=== PATIENT | female | born 1955 | race Caucasian/White ===

== ENCOUNTER 2020-12-10 13:59 | Outpatient (CLI) | payer MEDICARE, SELFPAY ==
--- NOTE | ~2020-12-10 | CT_ITS ---
EXAMINATION: CT lung screening DATE: 12/10/2020 16:18 INDICATION: Personal history of tobacco dependence, prior smoker with 45 pack year history TECHNIQUE: Computed tomography (CT) of the chest was performed without intravenous contrast. The dose -length product (DLP) was 90.35 mGy-cm. Automated exposure control and iterative reconstruction techn [employer] were employed. COMPARISON: None FINDINGS: There is mild emphysema. No pulmonary nodules are identified. The lungs are free of acute o pacities. There is no pleural effusion or pneumothorax. No pathologically enlarged thoracic lymph nod es are identified. The heart size is normal. There is mild thoracic spondylosis. IMPRESSION: 1. Lung-RADS category 1: Negative. Continue annual screening with noncontrast low-dose chest CT in 12 months. Reviewed, dictated and finalized at location A. RENTAL CLERK IMPRESSION: 1. Lung-RADS category 1: Negative. Continue annual screening with noncontrast l ow-dose chest CT in 12 months.
--- NOTE | ~2020-12-10 | DEXA_ITS ---
Bone Density Report Name: Nadia Akers Age: 65 Sex: Female Ethnicity: White Date of : 1955 Indication: postmenopausal; hysterectomy; Referring Provider: LAURI, DEVENDRA Ambrose Study: Bone densitometry was performed. Exam Date: December 10, 2020 Accession number: [id number] Bone Density: Region BMD T-score Z-score Classification AP Spine (L1-L4) 0.847 -1.8 0.0 Osteopenia Femoral Neck (Left) 0.716 -1.2 0.4 Osteopenia Total Hip (Left) 0.844 -0.8 0.5 Normal Total Hip Bilateral Avg 0.852 -0.8 0.6 Normal Femoral Neck (Right) 0.666 -1.7 -0.1 Osteopenia Total Hip (Right) 0.859 -0.7 0.6 Normal World Health Organization criteria for BMD impression classify patients as: Normal (T-score at or above -1.0), Osteopenia (T-score between -1.0 and -2.5), or Osteoporosis (T-score at or below -2.5). 10-year Fracture Risk(1): Major Osteoporotic Fracture 9.3% Hip Fracture 1.1% Reported Risk Factors: [place] (), Neck BMD=0.666, BMI=27.5 (1) FRAX(R) Version 3.08. Fracture probability calculated for an untreated patient. Fracture probability may be lower if the patient has received treatment. Clinical Information Provided by Patient: Has used the following medications: Vitamin D Has the following medical conditions: Hysterectomy Patient maximum height was 65 Menopause Age: 40 No regular weight bearing exercise Onset of menses at age 10 Number of children 3 Impression: The patient has low bone mass, based on the Total Spine T-score. The patient has an estimated ten-year risk of hip fracture of 1.1% and an estimated ten-year risk of major fracture of 9.3%, based on the WHO FRAX algorithm. Discussion: BONE DENSITY IS LOW AT ONE OR MORE SKELETAL SITES. This patient's lowest T-score is low at one or more skeletal sites. It meets the World Health Organization's (WHO) criteria for ?low bone mass? (T-score between -1.0 and -2.5). The patient's 10-year risk of fracture as calculated by FRAX is less than the threshold where pharmacological therapy is recommended by the National Osteoporosis Foundation (NOF). However, all treatment decisions require clinical judgment and consideration of individual patient factors, including patient preferences, comorbidities, previous drug use, risk factors not captured in the FRAX model (e.g., frailty, falls, vitamin D deficiency, increased bone turnover, interval significant decline in bone density) and possible under or overestimation of fracture risk by FRAX. The patient should follow a healthful lifestyle (good nutrition with adequate calcium and vitamin D, and appropriate weight-bearing exercise). Follow-Up: Consider repeating this study in 2 to 3 years to reassess this patient's status, or sooner if there is some new clinical indication. Reported by: WILI on 12/10/2020 2:3
--- NOTE | ~2020-12-10 | MM_ITS ---
EXAMINATION: MM screening [facility] BI w camilo HISTORY: Screening mammogram TECHNIQUE: Craniocaudal and mediolateral oblique 3-D tomosynthesis images were obtained and synthetic 2-D images were generated. CAD analysis was submitted and interpreted. COMPARISON: No prior mammogram is available for comparison at this institution. BREAST PARENCHYMAL COMPOSITION: There are scattered areas of fibroglandular density. FINDINGS: Bilateral breast masses are suggested including a 4 mm mass at the right axillary tail,, conway ggestive subareolar right breast mass, 6 mm mass in the lateral left breast (craniocaudal tomosynthes is image ). Bilateral diagnostic mammography and bilateral breast ultrasound examination are recommended. IMPRESSION: 1. Bilateral breast masses 2. Bilateral diagnostic mammography and bilateral breast ultrasound examination are recommended BI-RADS Category 0: Incomplete: Needs additional imaging evaluation. Reviewed, dictated and finalized at location A. RMATION SYSTEMS PROFESSOR
== END 2020-12-10 14:00 | disposition home or self-care (01) ==
LOC: ANHIMG 14:04
PROVIDERS: PCP Family Medicine; Visit Provider Family Medicine
DX: Z12.31 Encounter for screening mammogram for malignant neoplasm of breast (principal); Z12.2 Encounter for screening for malignant neoplasm of respiratory organs; Z87.891 Personal history of nicotine dependence; R92.8 Other abnormal and inconclusive findings on diagnostic imaging of breast; Z78.0 Asymptomatic menopausal state; M85.852 Other specified disorders of bone density and structure, left thigh; M85.851 Other specified disorders of bone density and structure, right thigh
CPT/HCPCS: 71271; 77063; 77067; 77080

== ENCOUNTER 2020-12-10 14:56 | Outpatient (CLI) | payer MEDICARE, SELFPAY ==
--- NOTE | 2020-12-10 | ECHO_ITS ---
Patient Info Name: Nadia Akers Age: 65 years : 1955 Gender: Female Ht: 64 in Wt: 165 lbs BSA: 1.86 m2 HR: 80 bpm BP: 139 / 71 mmHg Heart Rhythm: Sinus Rhythm Technical Quality: Good Exam Date: 12/10/2020 3:30 PM Exam Location: [facility] Pulmonary Patient Status: Outpatient Admit Date: 12/10/2020 Staff Ordering Physician: Leanna, Edilia Ambrose MD End Lathe Operator: Morenita Spivey RDCS Attending Provider: Kay, Edilia mAbrose MD Referring Physician: Leanna BUSTAMANTE; Exam Type: CA echo doppler color flow Study Info Indications - ARAUJO Complete two-dimensional, color flow and Doppler transthoracic echocardiogram is performed. Summary 1. Complete two-dimensional, color flow and Doppler transthoracic echocardiogram is performed. 2. Left ventricular chamber size, wall thickness, systolic and diastolic function are normal with no regional wall motion abnormalities with an estimated ejection fraction of >70%. 3. Left atrial chamber dimension is mildly enlarged. 4. No significant valve disease. 5. Borderline pulmonary hypertension, estimated pulmonary arterial systolic pressure is 37 mmHg. 6. normal sinus rhythm. Left Ventricle Left ventricular chamber dimension is normal. Left ventricular systolic function is normal, estimated at >70%. There is no increased left ventricular wall thickness. Left ventricular septal wall motion is normal. The left ventricular diastolic function is normal. Left ventricular chamber size, wall thickness, systolic and diastolic function are normal with no regional wall motion abnormalities with an estimated ejection fraction of >70%. Right Ventricle Right ventricular chamber dimension is normal. Right ventricular systolic function is normal. Left Atria Left atrial chamber dimension is mildly enlarged. Right Atria Right atrial chamber dimension is normal. Aortic Valve The aortic valve is trileaflet. There is no aortic valve sclerosis. There is no aortic valve stenosis. There is no aortic valve regurgitation. Pulmonic Valve The pulmonic valve is normal. There is no pulmonic valve stenosis. There is no pulmonic regurgitation. Mitral Valve The mitral valve has normal leaflets. There is no mitral valve stenosis. There is no mitral valve regurgitation. Tricuspid Valve The tricuspid valve leaflets are normal. There is no significant tricuspid valve stenosis. There is trace tricuspid valve regurgitation. Borderline pulmonary hypertension, estimated pulmonary arterial systolic pressure is 37 mmHg. Pericardium/Pleural The pericardium appears normal. There is no pericardial effusion. Inferior Vena Cava Normal inferior vena cava with >50% collapse upon inspiration consistent with Empty right atrial pressure, 10 mmHg. Aorta The aortic root size at the sinus of Valsalva is normal. The prox ascending aorta size is normal. Left Ventricular Outflow Tract Name Value Normal LVOT 2D LVOT Diameter 2.0 cm LVOT Doppler LVOT Peak Gradient 6 mmHg LVOT Mean Gradient 3 mmHg LVOT VTI
== END 2020-12-10 14:57 | disposition home or self-care (01) ==
PROVIDERS: PCP Family Medicine; Visit Provider Family Medicine
DX: R06.02 Shortness of breath (principal); I51.7 Cardiomegaly
CPT/HCPCS: 71271; 77063; 77067; 77080; 93306

== ENCOUNTER 2021-01-14 12:59 | Outpatient (CLI) | payer MEDICARE, SELFPAY ==
--- NOTE | ~2021-01-14 | MMUS_ITS ---
EXAMINATION: MM diagnostic mammo BI, US breast BI limited HISTORY: Follow-up bilateral breast asymmetries TECHNIQUE: Additional 3-D tomosynthesis images of the breasts were performed and synthetic 2-D images were generated. CAD analysis was submitted and interpreted. High resolution limited bilateral breast ultrasound was performed. COMPARISON: 12/10/2020 BREAST PARENCHYMAL COMPOSITION: Breast composed of scattered areas of fibroglandular density. FINDINGS: MAMMOGRAPHIC FINDINGS: There is a persistent circumscribed 5 mm mass upper outer quadrant overlying the pectoralis muscle. T he focal asymmetry in the lateral aspect of the left breast is less dense with spot compression views . ULTRASOUND: Bilateral limited breast ultrasound: No discrete mass identified. Normal heterogeneous echotexture. IMPRESSION: 1. Probable benign bilateral breast masses involving the axillary aspect of the right breast in the m id lateral aspect of the left breast, most likely lymph nodes. 2. Recommend 6 month follow-up diagnostic bilateral mammogram. BI-RADS category 3, probably benign findings. Reviewed, dictated and finalized at location A. IMPRESSION: 1. Probable benign bilateral breast masses involving the axillary aspect of the right breast in the mid lateral aspect of the left breast, most likely lymph n odes. 2. Recommend 6 month follow-up diagnostic bilateral mammogram. BI-RADS category 3, probably benign findings.
== END 2021-01-14 13:00 | disposition home or self-care (01) ==
PROVIDERS: PCP Family Medicine; Visit Provider Family Medicine
DX: R92.8 Other abnormal and inconclusive findings on diagnostic imaging of breast (principal)
CPT/HCPCS: 76642; 77066

== ENCOUNTER 2023-04-11 07:26 | Outpatient (CLI) | payer MEDICARE, SELFPAY ==
--- NOTE | ~2023-04-11 | MM_ITS ---
EXAMINATION: MM screening [facility] BI w camilo HISTORY: Screening mammogram TECHNIQUE: Craniocaudal and mediolateral oblique 3-D tomosynthesis images were obtained and synthetic 2-D images were generated. CAD analysis was submitted and interpreted. COMPARISON: 01/14/2021 bilateral diagnostic mammography and bilateral Limited breast ultrasound examin ation BREAST PARENCHYMAL COMPOSITION: There are scattered areas of fibroglandular density. FINDINGS: There is mildly diminished size of a circumscribed mass in the outer mid to upper left jeniffer st, currently measuring approximately 5 mm compared to 6.6 mm on December 10, 2020. No suspicious mass , architectural distortion, microcalcifications, skin thickening or retraction or significant new or developing density of either breast is detected. IMPRESSION: 1. Benign finding 2. Recommend routine screening mammography in one year. BI-RADS Category 2: Benign finding(s). Reviewed, dictated and finalized at location A.
== END 2023-04-11 07:27 | disposition home or self-care (01) ==
PROVIDERS: PCP Nurse Practitioner Family; Visit Provider Nurse Practitioner Family
DX: Z12.31 Encounter for screening mammogram for malignant neoplasm of breast (principal)
CPT/HCPCS: 77063; 77067

== ENCOUNTER → 2023-05-04 08:05 | Outpatient (CLI) | payer MEDICARE, SELFPAY ==
--- NOTE | ~2023-05-04 | XR_ITS ---
EXAMINATION: XR chest 2V DATE: 05/04/2023 08:19 INDICATION: Shortness of breath. TECHNIQUE: Frontal and lateral views of the chest were obtained. COMPARISON: Chest CT 12/10/2020 FINDINGS: The chest demonstrates clear lungs without pneumonia, pleural effusion, or pneumothorax. Th e heart size is normal. IMPRESSION: 1. No acute cardiopulmonary disease. Reviewed, dictated and finalized at location A.
== END ==
PROVIDERS: PCP Nurse Practitioner Family; Visit Provider Nurse Practitioner Family
DX: R06.02 Shortness of breath (principal)
CPT/HCPCS: 71046

== ENCOUNTER 2023-07-19 06:36 | Outpatient (CLI) | payer MEDICARE, SELFPAY ==
--- NOTE | ~2023-07-19 | CT_ITS ---
EXAMINATION: CT abdomen wo con DATE: 07/19/2023 08:42 INDICATION: Thrombocytosis TECHNIQUE: Computed tomography (CT) of the abdomen was performed without intravenous contrast. The do se-length product (DLP) was 319.50 mGy-cm. Automated exposure control and iterative reconstruction te chnique were employed. COMPARISON: None FINDINGS: The lung bases are clear. The heart size is normal. The liver, spleen, pancreas, gallbladde r, and adrenal glands are normal. The left kidney is unremarkable. There is a 7 mm cyst of the right kidney. There are no pathologically enlarged abdominal lymph nodes. The appendix is normal. No free i ntraperitoneal gas or evidence of bowel obstruction. There is severe lower lumbar spondylosis. IMPRESSION: 1. No CT correlate for the patient's symptoms. Reviewed, dictated and finalized at location B.
[2023-07-19 07:08] LABS: Estimated Glomerular Filt Rate 26
== END 2023-07-19 06:37 | disposition home or self-care (01) ==
PROVIDERS: PCP Nurse Practitioner Family
DX: D75.839 Thrombocytosis, unspecified (principal); D47.3 Essential (hemorrhagic) thrombocythemia
CPT/HCPCS: 74150

== ENCOUNTER → 2023-08-30 11:01 | Outpatient (CLI) | payer MEDICARE, SELFPAY ==
--- NOTE | ~2023-08-30 | XR_ITS ---
EXAMINATION: XR shoulder RT min 2V DATE: 08/30/2023 11:25 INDICATION: Right shoulder pain. TECHNIQUE: 4 views of right shoulder were obtained. COMPARISON: None. FINDINGS: Bone alignment is normal. No fracture. Glenohumeral joint is normal. There is moderate acro mioclavicular joint osteoarthritis. IMPRESSION: 1. Moderate right acromioclavicular joint osteoarthritis. Reviewed, dictated and finalized at location E.
--- NOTE | ~2023-08-30 | XR_ITS ---
XR knee LT min 4V 08/30/2023 11:26 Indication: Left knee pain Procedure: 4 views left knee Comparison: No prior studies for comparison. Findings: There is moderate tricompartment osteoarthritis. No fracture or traumatic malalignment. No significant joint effusion. Impression: 1: Moderate tricompartment osteoarthritis. Reviewed, dictated and finalized at location B. Impression: 1: Moderate tricompartment osteoarthritis.
== END ==
PROVIDERS: PCP Nurse Practitioner Family; Visit Provider Nurse Practitioner Family
DX: M19.011 Primary osteoarthritis, right shoulder (principal); M17.12 Unilateral primary osteoarthritis, left knee
CPT/HCPCS: 73030; 73564

== ENCOUNTER 2024-04-30 15:14 | Outpatient (CLI) | payer MEDICARE, SELFPAY ==
--- NOTE | ~2024-04-30 | CT_ITS ---
EXAMINATION: CT diagnostic chest wo con DATE: 04/30/2024 15:43 INDICATION: LOCALIZED ENLARGED LYMPH NODES TECHNIQUE: Computed tomography (CT) of the chest was performed without intravenous contrast. Addition al 3D reconstructions utilizing coronal maximum intensity projection (MIP) were performed. Automated exposure control and iterative reconstruction technique were employed. The dose-length product was 21 4.30 mGy-cm. COMPARISON: None FINDINGS: No pneumonia, pulmonary edema or pleural effusion. No suspicious pulmonary nodules. Heart size is nor mal. No pericardial effusion. Thoracic aorta is normal in caliber. No pathologically enlarged thoraci c lymphadenopathy. Visualized upper abdomen is unremarkable. Severe lower cervical and moderate thora cic spondylosis. IMPRESSION: 1. No acute cardiopulmonary disease or pathologically enlarged thoracic lymphadenopathy. Reviewed, dictated and finalized at location B. IMPRESSION: 1. No acute cardiopulmonary disease or pathologically enlarged thoracic lymphad enopathy.
== END 2024-04-30 15:15 | disposition home or self-care (01) ==
PROVIDERS: PCP Nurse Practitioner Family; Visit Provider Nurse Practitioner Family
DX: R59.0 Localized enlarged lymph nodes (principal)
CPT/HCPCS: 71250

== ENCOUNTER 2024-05-28 13:33 | Outpatient (CLI) | payer MEDICARE, SELFPAY ==
--- NOTE | ~2024-05-28 | MM_ITS ---
EXAMINATION: MM diagnostic [facility] BI w camilo HISTORY: Left axillary palpable abnormality TECHNIQUE: Additional 3-D tomosynthesis images of the breasts were performed and synthetic 2-D images were generated. CAD analysis was submitted and interpreted. COMPARISON: Comparison to multiple prior studies sequentially, with oldest reviewed study dated 12/10. BREAST PARENCHYMAL COMPOSITION: Not dense: There are scattered areas of fibroglandular density. FINDINGS: The breasts are stable. No suspicious masses, calcifications or architectural distortion to suggest malignancy. IMPRESSION: 1. No mammographic evidence for malignancy. 2. Targeted left ultrasound recommended for palpable abnormality. BI-RADS CATEGORY 0 - INCOMPLETE STUDY, NEED ADDITIONAL IMAGING EVALUATION. Reviewed, dictated and finalized at location B.
--- NOTE | ~2024-05-28 | DEXA_ITS ---
Bone Density Report Name: JOHN DIAZ I Age: 69 Sex: Female Ethnicity: White Date of : 1955 Indication: postmenopausal; screening for osteoporosis; height loss; prior fracture; hysterectomy; Referring Provider: ERAN, BACILIO Study: Bone densitometry was performed. Exam Date: May 28, 2024 Accession number: [id number] Bone Density: Region BMD T-score Z-score Classification AP Spine(L1-L4) 0.940 -1.0 1.1 Normal Femoral Neck (Left) 0.713 -1.2 0.5 Osteopenia Total Hip (Left) 0.806 -1.1 0.3 Osteopenia Femoral Neck (Right) 0.639 -1.9 -0.1 Osteopenia Total Hip (Right) 0.825 -1.0 0.5 Normal Total Hip Mean 0.815 -1.1 0.4 Osteopenia World Health Organization criteria for BMD impression classify patients as: Normal (T-score at or above -1.0), Osteopenia (T-score between -1.0 and -2.5), or Osteoporosis (T-score at or below -2.5). 10-year Fracture Risk: FRAX not reported because: Prior hip or vertebral fracture Clinical Information Provided by Patient: Have had a previous hip or vertebral fracture Has had a low trauma fracture Has 3 or more alcoholic drinks per day Has used the following medications: Vitamin D Has the following medical conditions: Hysterectomy Patient maximum height was 66 Menopause Age: 40 Drinks caffeinated beverages Onset of menses at age 9 Number of children 3 Impression: The patient has low bone mass, based on the Right Femoral Neck T-score. The patient has risk factors, including: excessive alcohol use, previous fracture. Discussion: INCREASED RISK OF FRACTURE DUE TO HISTORY OF FRACTURE. The patient's previous fracture puts the patient at high risk of a future fracture. In untreated patients, the risk of osteoporotic fracture increases approximately two-fold for each 1.0 SD decrease in T-score. Low bone density is not the only risk factor for fracture; also consider factors such as patient's age, frailty or poor health, risk of falling, risk of injury, previous osteoporotic fracture, family history of osteoporosis, cigarette smoking, low body weight, etc. Not everyone with a low trauma fracture has osteoporosis; osteomalacia and other metabolic bone disorders should also be considered. Patients who have osteoporosis should be evaluated for specific diseases and conditions (secondary causes) that may cause or contribute to bone loss and fracture risk. National Osteoporosis Foundation (NOF) recommends pharmacologic intervention for patients with a prior hip or vertebral fracture regardless of BMD T-score. The patient should follow a healthful lifestyle (good nutrition with adequate calcium and vitamin D, and appropriate weight-bearing exercise). Follow-Up: Consider a repeat BMD and Vertebral Fracture Assessment (VFA) exam in 2 years or sooner if medically necessary, to r
--- NOTE | ~2024-05-28 | US_ITS ---
US axilla LT 05/28/2024 19:51 Indication: Left axillary lump Procedure: High-resolution Limited ultrasound of the left axilla Comparison: Mammogram dated 05/28/2024 Findings: There is a normal-appearing 7 mm left axillary lymph node with fatty hilum. No suspicious m asses in the axilla to suggest malignancy. Impression: 1: Unremarkable left axillary ultrasound. BI-RADS CATEGORY 2 - BENIGN FINDINGS Reviewed, dictated and finalized at location B. Impression: 1: Unremarkable left axillary ultrasound. BI-RADS CATEGORY 2 - BENIGN FINDINGS
== END 2024-05-28 13:34 | disposition home or self-care (01) ==
PROVIDERS: PCP Nurse Practitioner Family; Visit Provider Nurse Practitioner Family
DX: Z78.0 Asymptomatic menopausal state (principal); R59.1 Generalized enlarged lymph nodes; M85.852 Other specified disorders of bone density and structure, left thigh; M85.851 Other specified disorders of bone density and structure, right thigh
CPT/HCPCS: 76882; 77062; 77066; 77080; G0279

== ENCOUNTER → 2025-04-30 10:17 | Outpatient (CLI) | payer MEDICARE, SELFPAY ==
--- NOTE | ~2025-04-30 | XR_ITS ---
XR cervical spine 4-5V Ordering provider: Yancy Erickson, MACHINE STRAW HAT PRESSER History: . M54.2 Pain . Comparison: April 25, 2011 FINDINGS: VERTEBRAL BODIES: Reversal of lordosis with kyphosis centered at the level of C3-C4. Normal height an d alignment. No visible fracture or subluxation. The dens is intact. Degenerative changes of the spin e. DISK SPACES: Narrowing of the disc C3-C4, C4-C5, C5-C6 and C6-C7. Multilevel facet joint disease. Mul tilevel uncovertebral joint osteoarthritic changes. PARASPINOUS SOFT TISSUES: No prevertebral soft tissue swelling. IMPRESSION: No acute osseous abnormality cervical spine. Multilevel degenerative disc disease. Reviewed, dictated and finalized at location A.
== END ==
LOC: EXPCRAD 10:21
PROVIDERS: PCP Nurse Practitioner Family; Visit Provider Nurse Practitioner Family
DX: M50.31 Other cervical disc degeneration, high cervical region (principal); M50.321 Other cervical disc degeneration at C4-C5 level; M50.322 Other cervical disc degeneration at C5-C6 level; M50.323 Other cervical disc degeneration at C6-C7 level
CPT/HCPCS: 72050

== ENCOUNTER 2025-07-07 08:05 | Outpatient (CLI) | payer MEDICARE, SELFPAY ==
--- OUTSIDE RECORDS SUMMARY | 2000-03-31 10:45 | XMS_ITS | Continuity of Care Document ---
Author Organization [facility] Address [address] [place] [address] Phone Care Team Providers Care Business Planning Analyst Name Role Phone [place] Unavailable Unavailable Advance Directives Directive Yes / No Effective Date File Name No Information Encounters Encounter Description Practice Location Reason(s) For Visit Diagnoses Date Provider Providers Copied on Encounter [facility], [address], [place], [place], [id number], [place] tel:[phone] [facility] No Information Kenji-0 [phone] [place]. [address] , [address], [place], [address], [place]. tel:[phone] Family History Family Member Type Diagnosis Age At Onset No Information Payers Payer name Insurance type Covered constitution party ID Authoriza tion(s) No Information Social History Type Description Quantity Date Captured Comments Sex Female Smoking Status No Information Chief Complaint And Reason For Visit No Information Reason For Referral Reason For Referral No Information History Of Present Illness Encounter Date Complaint History Of Prese nt Illness No Information Functional Status Date Functional Assessmen t No Information Instructions Date Instruction Additional Infor mation No Information Assessments Type Assessment Date No Information Patient Care Teams Name Effective Dates (start - stop) Status Members No Information
--- NOTE | ~2025-07-07 | MM_ITS ---
EXAMINATION: MM screening jazz BI w camilo HISTORY: Screening TECHNIQUE: Craniocaudal and mediolateral oblique 3-D tomosynthesis images were obtained and synthetic 2-D images were generated. CAD analysis was submitted and interpreted. COMPARISON: Comparison to multiple prior studies sequentially, with oldest reviewed study dated , 12/10/2020 BREAST PARENCHYMAL COMPOSITION: There are scattered areas of fibroglandular density. FINDINGS: There is no evidence of suspicious mass, calcification, or architectural distortion to suggest malignancy in either breast. IMPRESSION: 1. No mammographic evidence of malignancy. 2. Recommend routine screening mammography in one year. BI-RADS Category 1: Negative Reviewed, dictated and finalized at location B.
--- OUTSIDE RECORDS SUMMARY | 2025-07-07 08:21 | XMS_ITS ---
Author Organization [facility] Address [address] [place] [address] Care Team Providers Care Homicide Investigator Name Role Phone Yancy Erickson NP Primary Care Provider Rubens Segundo MD Unavailable [phone] Active Problems Problem Noted Date Diagnosed Date History of nicotine dependence 04/30/2025 Bipolar affective disorder, currently depressed, mild 01/20/2025 Neuropathy 10/28/2024 Localized enlarged lymph nodes 04/25/2024 Post-menopause 04/25/2024 CKD (chronic kidney disease) stage 3, GFR 30-59 ml/min 12/26/2023 Pulmonary emphysema, unspecified emphysema type 11/28/2023 Pulmonary hypertension 11/28/2023 Bilateral hand pain 08/29/2023 Chronic right shoulder pain 08/29/2023 Chronic pain of left knee 08/29/2023 Malignant melanoma, unspecified site 05/29/2023 BMI 28.0-28.9,adult 05/03/2023 Assessment & Plan (04/25/2024 7:50 AM CDT): Weight/BMI is in healthy range. Continue healthy lifestyle to maintain. SOB (shortness of breath) 05/03/2023 Assessment & Plan (11/28/2023 8:11 AM HOT WALKER): This is a significant, separately identifiable problem that was evaluated and managed on the same day as the wellness exam Sore throat 03/09/2023 Cough 03/09/2023 Fever 03/09/2023 Left sided sciatica 03/09/2023 Neck pain 01/31/2023 Mixed hyperlipidemia 01/31/2023 Vitamin D deficiency 01/31/2023 Acquired hypothyroidism 01/31/2023 Hypertension, essential 01/31/2023 Screening for cholesterol level 01/31/2023 Essential thrombocythemia 07/13/2020 Thrombocytosis 12/23/2014 Cephalalgia 05/27/2009 Anxiety 05/27/2009 Assessment & Plan (11/28/2023 8:11 AM HOT WALKER): This is a significant, separately identifiable problem that was evaluated and managed on the same day as the wellness exam 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 Past Treatment and Therapy Plans No past plan information found. Lifetime Dose Tracking * Chemical Lifetime Dose Automatic Entry Manual Entr y DLP 101.6 mGycm 101.6 mGycm 0 mGycm CTDIvol 2.89 mGy 2.89 mGy 0 mGy Resolved Problems Problem Noted Date Diagnosed Date Resolved Date BMI 26.0-26.9,adult 01/31/2023 05/03/20 23
--- OUTSIDE RECORDS SUMMARY | 2025-07-07 08:22 | XMS_ITS | Clinical Summary ---
Author Organization [facility] Address [facility] [place] [address] Care Team Providers Care Production Machine Operator Name Role Phone Yancy Erickson NP Primary Care Provider [phone] Rubens Segundo MD Unavailable [phone] Allergies Active Allergy Reactions Criticality Noted Date Comments Anti-Hyst Itching Low 07/13/2021 Hard to breath, feeling skin crawls Hydrocodone-Acetaminophen Medications aspirin 81 mg enteric coated tablet Take 1 tablet (81 mg total) by mouth daily Active magnesium chloride 64 mg of elemental magnesium delayed release tabletIndications: hypomagnesemia Take 1 tablet (64 mg of elemental magnesium total) by mouth Active calcium carbonate-vitamin D3 2,500 mg (1,000 mg elemental)-800 unit tabletIndications: Essential thrombocythemia (HCC) Take by mouth Active xltx-uequ-pba-yuc- [id number]-nrfx-mli [id number] mg tabletIndications: Essential thrombocythemia (HCC) Take by mouth Active spironolactone-hyd roCHLOROthiazide (ALDACTAZIDE) 25-25 mg per tabletIndications: Hypertension, essential TAKE 1 TABLET BY MOUTH DAILY 90 tablet 1 025 Active fenofibrate (TRIGLIDE) 160 mg tablet TAKE 1 TABLET(160 MG) BY MOUTH DAILY 100 tablet 1 025 Active ergocalciferol (VITAMIN D) 50,000 unit capsuleIndications :Vitamin D deficiency TAKE 1 CAPSULE BY MOUTH 1 TIME A WEEK 12 capsule 4 025 Active levothyroxine (SYNTHROID) 50 mcg tabletIndications: Acquired hypothyroidism TAKE 1 TABLET(50 MCG) BY MOUTH DAILY 90 tablet 1 025 Active gabapentin (NEURONTIN) 300 mg capsuleIndications :Neuropathy TAKE 1 CAPSULE(300 MG) BY MOUTH EVERY NIGHT 90 capsule 1 025 Active tiZANidine (ZANAFLEX) 4 mg tabletIndications: Night muscle spasms TAKE 1 TABLET(4 MG) BY MOUTH EVERY 8 HOURS NEEDED FOR MUSCLE SPASMS 90 tablet 1 025 Active ALPRAZolam (XANAX) 0.5 mg tabletIndications: Anxiety TAKE 1 TABLET(0.5 MG) BY MOUTH TWICE DAILY NEEDED FOR ANXIETY 45 tablet 2 025 Active amLODIPine (NORVASC) 10 mg tablet TAKE 1 TABLET(10 MG) BY MOUTH DAILY 100 tablet [address] (CYMBALTA) 30 mg capsuleIndications :Anaclitic depression,Chronic pain of left knee TAKE ONE CAPSULE BY MOUTH THREE TIMES DAILY 270 capsule 1 025 Active hydroxyurea (HYDREA) 500 mg capsuleIndications :Essential thrombocythemia (HCC) Take 1 tablet (500mg) on Sun,,Mon ,Mon,Sat and 2 tablets (1000mg) on Mon, 100 capsule 1 025 Active losartan (COZAAR) 100 mg tabletIndications: Hypertension, essential TAKE 1 TABLET(100 MG) BY MOUTH DAILY 100 tablet 1 025 Active losartan (COZAAR) 100 mg tabletIndications: Hypertension, essential TAKE 1 TABLET(100 MG) BY MOUTH DAILY 100 tablet 1 025 2024 Discontinued hydroxyurea (HYDREA) 500 mg capsuleIndications :Essential thrombocythemia (HCC) Take 1 tablet (500mg) on Sun,,Mon ,Mon,Sat and 2 tablets (1000mg) on Mon, 38 capsule 025 2024 Discontinued(R eorder) Active Problems Problem Noted Date Diagnosed Date [...] 05/03/2023 Assessment & Plan (11/28/2023 8:11 AM MECHANICAL ESTIMATOR): This is a significant, separately identifiable problem [...] 05/27/2009 Assessment & Plan (11/28/2023 8:11 AM MECHANICAL ESTIMATOR): This is a significant, separately identifiable problem that was evaluated and managed on the same day as the wellness exam 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 Bone Marrow Transplant [facility] [address] [place] [address] Alessandra Antony RMA Med Management 05/22/[address] [place] [phone] Yancy Erickson NP Medical Question/Miscellaneous 05/19/2025 8:15 AM CDT Lab [facility] at [address] [address] Essential thrombocythemia (HCC) 05/19/2025 6:49 AM CDT - 05/19/2025 11:59 PM CDT Hospital Encounter [facility] [address] [place] [address] Nicotine dependence, cigarettes, in remission; Encounter for screening for lung cancer Discharge Disposition: Discharge to home or self care 05/06/2025 Results Follow-Up [address] [place] [phone] Yancy Erickson NP XR Spine Cervical Complete 4 Or 5 Vw, Comprehensive metabolic panel, Vitamin D 25 hydroxy, Additional followed-up results: 2 04/30/2025 7:30 AM CDT Office Visit [address] [place] [phone] Yancy Erickson NP Physical exam, annual (Primary Dx); BMI 28.0-28.9,adult; Hypertension, essential; Vitamin D deficiency; Screening for cholesterol level; Acquired hypothyroidism; Neck pain; Breast cancer screening by mammogram 04/30/2025 Telephone [facility] [address] [facility] [address] [place] [phone] Scan 04/21/2025 8:15 AM CDT Lab [facility] at [address] [address] Essential thrombocythemia (HCC) from Last 3 Months Immunizations Immunization Administration Dates Next Due Influenza, Quadrivalent, Jimena l Culture-based MDCK, Antibiotic Free, Intramuscular 08/12/2019 Influenza, Quadrivalent, Hig h Dose, Preservative Free, Intrr 08/04/2024 Influenza, Quadrivalent, Spl it, Intramuscular 07/28/2021,08/03/2016 Influenza, Quadrivalent, Spl it, Preservative Free, Intramuscular 07/30/2018,08/16/2017 Influenza, Trivalent, Cell Culture-based MDCK, Preservative Free, Antibiotic Free, Intramuscular 07/31/2018 Influenza, Trivalent, High D ose, Split, Preservative Free, Intramuscular 08/12/2020 Influenza, Trivalent, IM (MDV) 08/04/2014 Influenza, Trivalent, Preser vative Free, Intramuscular 08/30/2015,08/07/2013 Influenza, Unspecified 08/04/2023,2022(Deferred: Patient Refused),11/30/2021,11/30/2021(Deferre d: Patient Refused),12/23/2014,09/23/2014, 014,06/03/2014,05/20/2014,04/22/2014 Novavax COVID-19 5MCG/0.5ML Vaccine 08/04/2024 Pfizer SARS-CoV-2 Monovalent Vaccination (12+ Yrs) PURPLE 07/28/2021,01/15/2021,12/24/2020 Pfizer Sars-Cov-2 Bivalent V accination (12+ YRS) 07/28/2021 Pfizer Sars-Cov-2 Bivalent V accination (5-11 YRS) 01/15/2021 Pfizer Sars-Cov-2 Bivalent V accination (6 MOS-4 YRS) 12/24/2020 Pneumococcal Conjugate PCV 13 08/29/2017 Pneumococcal Polysaccharide PPV23 11/11/2020 Sars-CoV-2, Unspecified 01/15/2021,12/24/2020 Tdap 10/09/2019 ZOSTER LIVE 02/01/2015 ZOSTER Recombinant 08/21/2019,06/18/2019 Zoster, unspecified 06/27/2019 Surgical History Surgery Date Site/Laterality Comments MD TOTAL ABDOMINAL HYSTERECT W/WO RMVL TUBE OVARY Hysterectomy - (Added by TW Conv) MD LIG/TRNSXJ FLP TUBE ABDL/ VAG APPR UNI/BI Tubal Ligation - (Added by Conv) PLASTIC SURGERY HYSTERECTOMY BACK SURGERY Medical History Medical History Date Comments Hypertension Hyperlipidemia Hypothyroidism Anxiety and depression Osteoarthritis Family History Medical History Relation Name Comments Coronary artery disease Father No Known Problems Maternal Grandfather No Known Problems Maternal Grandmother Cancer Other 1 Reported A Hist ory Of Cancer - MGF stomach ca (Added by TW Conv) Alcohol abuse Other 2 Family history of alcoholism - both sides of the family (Added by TW Conv) Depression Other 3 Family history of depression - sister (Added by Conv) Bipolar disorder Other 4 Family hist ory of bipolar disorder - daughter (Added by Conv) Stomach cancer Paternal Grandmother Relation Name Status Comments Father Maternal Grandfather Maternal Grandmother Mother Other 1 Other 2 Other 3 Other 4 Paternal Grandmother Social History Tobacco Use Types Packs/Day Years Used Date Smoking Tobacco: Former Cigarettes 1 40 0 10/30/1979 - 10/30/2019 Smokeless Tobacco: Never Tobacco Cessation:Counseling Given: Not Answered Alcohol Use Standard Drinks/Week Comments Yes 2 (1 standard drink = 0.6 oz pur e alcohol) AUDIT-C Answer Date Recorded Q1: How often do you have a drink containing alcohol? 4 or more times a week 04/30/2025 Q2: How many drinks containi ng alcohol do you have on a typical day when you are drinking? 1 or 2 Q3: How often do you have si x or more drinks on one occasion? 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 Not on file Not on file Retired Not on file Not on file Not on file Obstetrics History Last Filed Vital Signs Vital Sign Reading Time Taken Comments Blood Pressure 120/60 04/30/2025 7:30 AM CDT Pulse 98 04/30/2025 7:30 AM CDT Temperature 36.8 C (98.2 F) 04/30/2025 7:30 AM CDT Respiratory Rate 18 01/20/2025 9:00 AM CDT Oxygen Saturation 99% 04/30/2025 7:30 AM CDT Inhaled Oxygen Concentration - - Weight 76.7 kg (169 lb) 05/19/2025 7:02 AM CDT Height 165.1 cm (5' 5) 05/19/2025 7:02 AM CDT Body Mass Index 28.12 05/19/2025 7:02 AM CDT Plan of Treatment Health Maintenance Due Date Last Done Comments Hepatitis C Screening 1955 Hepatitis B Screening 1973 Breast Cancer Screening-Mammogram 05/28/2025 024, 04/11/2023 Covid-19 Vaccine (8 - Mixed Product risk ) 06/30/2025 08/04/2024, 07/28/2021, 07/28/2021, Additional history exists Influenza Vaccine (#1) 2025 , 08/04/2023, 11/30/2021, Additional history exists Depression Screening 04/30/2026 04/30/2025, 12/24/2024, 10/28/2024, Additional history exists Fall Risk Assessment 04/30/2026 04/30/2025, 12/24/2024, 10/28/2024, Additional history exists Well Visit 65+ 04/30/2026 04/30/2025, 11/01, 08/29/2023 Lung Cancer Screening 05/20/2026 05/19/2025 , 05/04/2023, 05/04/2023, Additional history exists Osteoporosis Screening-Bone Density Scan 05/30/2026 05/30/2024 Colon Cancer Screening-DNA Stool 01/30/2027 01/31/2024, 01/22/2024, 12/28/2020 DTaP/Tdap/Td Vaccine (2 - Td or Tdap) 10/09/2029 10/09/2019 Zoster Vaccine Completed 08/21/2019, 05/31, 06/18/2019, Additional history exists Pneumococcal vaccine 65+ Completed 11/11/2020, 08/01 Colon Cancer Screening-Colonoscopy Discontinued 01/31/2024 Colon Cancer Screening-FIT Discontinued 01/30, 01/22/2024, 12/28/2020 Procedures Procedure Name Priority Date/Time Associated Diagnosis Comments DIFFERENTIAL AUTO Routine 06/16/2025 8:3 6 AM CDT Essential thrombocythemia (HCC) CBC WITH AUTO DIFFERENTIAL Routine 06/16/2025 8:36 AM CDT Essential thrombocythemia (HCC) DIFFERENTIAL AUTO Routine 05/19/2025 7:3 3 AM CDT Essential thrombocythemia (HCC) CBC WITH AUTO DIFFERENTIAL Routine 05/19/2025 7:33 AM CDT Essential thrombocythemia (HCC) CT LUNG CANCER SCREENING Schedule Routine, Read Routine (OP Routine) 05/19/2025 7:01 AM CDT Nicotine dependence, cigarettes, in remission Encounter for screening for lung cancer TSH Routine 05/07/2025 7:41 AM CDT Acquired hypothyroidism LIPID PANEL Routine 05/07/2025 7:41 AM CDT Screening for cholesterol level VITAMIN D 25 HYDROXY Routine 05/07/2025 7:41 AM CDT Vitamin D deficiency COMPREHENSIVE METABOLIC PANEL Routine 05/07/2025 7:41 AM CDT Hypertension, essential XR SPINE CERVICAL COMPLETE 4 OR 5 VW Schedule Routine, Read Routine (OP Routine) 05/05/2025 8:55 AM CDT Neck pain DIFFERENTIAL AUTO Routine 04/21/2025 7:4 9 AM CDT Essential thrombocythemia (HCC) CBC WITH AUTO DIFFERENTIAL Routine 04/21/2025 7:49 AM CDT Essential thrombocythemia (HCC) DEXA AXIAL SKELETON BONE DENSITY 1 OR MORE SITES Schedule Routine, Read Routine (OP Routine) 05/30/2024 12:16 PM CDT Post-menopause DIAGNOSTIC MAMMOGRAM BILATERAL W LUIGI Schedule Routine, Read Routine (OP Routine) 05/28/2024 Lymphadenopathy STOOL DNA COLOGUARD Routine 01/31/2024 7:56 AM CDT from Last 3 Months or Most Recently Relevant to Health Maintenance Results * Differential, auto (06/16/2025 8:36 AM CDT) Neutrophil abs 2.31 1.50 - 6.50 K/cumm Comment:Testing performed by : [address] [address] Imm gran abs 0.03 0.00 - 0.10 K/cumm [place] Comment:Testing performed by : [address] [address] Lymphocyte abs 0.92 0.80 - 3.30 K/cumm [facility] Comment:Testing performed by : [address] [address] Monocyte abs 0.62 0.20 - 0.80 K/cumm [facility] Comment:Testing performed by : [address] [address] Eosinophil abs 0.10 0.00 - 0.50 K/cumm [facility] Comment:Testing performed by : [address] [address] Basophil abs 0.03 0.00 - 0.10 K/cumm [place] Comment:Testing performed by : [address] [address] Neutrophil pct 57.7 % [facility] Comment: Interpretive Data Percent cell count reference ranges are not reported, since discordance with absolute values may lead to misinterpretation of CBC data. Current Interpretive Data was last revised on 2018. Testing performed by: [address] [address] Imm gran pct 0.7 % [facility] Comment: Interpretive Data Percent cell count reference ranges are not reported, since discordance with absolute values may lead to misinterpretation of CBC data. Current Interpretive Data was last revised on 2018. Testing performed by: [address] [address] Lymphocyte pct 22.9 % [facility] Comment: Interpretive Data Percent cell count reference ranges are not reported, since discordance with absolute values may lead to misinterpretation of CBC data. Current Interpretive Data was last revised on 2018. Testing performed by: [address] [address] Monocyte pct 15.5 % [facility] Comment: Interpretive Data Percent cell count reference ranges are not reported, since discordance with absolute values may lead to misinterpretation of CBC data. Current Interpretive Data was last revised on 2018. Testing performed by: [address] [address] Eosinophil pct 2.5 % [facility] Comment: Interpretive Data Percent cell count reference ranges are not reported, since discordance with absolute values may lead to misinterpretation of CBC data. Current Interpretive Data was last revised on 2018. Testing performed by: [address] [address] Basophil pct 0.7 % [facility] Comment: Interpretive Data Percent cell count reference ranges are not reported, since discordance with absolute values may lead to misinterpretation of CBC data. Current Interpretive Data was last revised on 2018. Testing performed by: [address] [address] Blood 06/16/2025 8:36 AM CDT 06/16/2025 8:39 AM CDT us Dania Yeager MD LAB BLOOD ORDERABLES Final Result [facility] [address] [facility] Department [place] [address] * (ABNORMAL) CBC with auto differential (06/16/2025 8:36 AM CDT) [facility] WBC 4.01 3.80 - 9.90 K/cumm Comment:Testing performed by : [address], [address] Hgb 12.9 11.9 - 15.5 g/dL [facility] Comment:Testing performed by : [address] [address] Hct 37.4 35.6 - 45.5 % [facility] Comment:Testing performed by : [address] [address] Plt 408(H) 150 - 400 K/cumm [facility] Comment:Testing performed by : [address] [address] MPV 8.4(L) 9.1 - 12.3 fL [facility] Comment:Testing performed by : [address], [address] RBC 3.66(L) 3.90 - 5.20 M/cumm [facility] Comment:Testing performed by : [address] [address] MCV 102.2(H) 81.3 - 96.4 fL [facility] Comment:Testing performed by : [address] [address] MCH 35.2(H) 27.1 - 33.3 pg [facility] Comment:Testing performed by : [address], [address] MCHC 34.5 32.3 - 35.7 g/dL [facility] Comment:Testing performed by : [address], [address] RDW CV 13.1 11.1 - 14.9 % [facility] Comment:Testing performed by : [address] [address] RDW SD 48.5(H) 35.7 - 48.1 fL [facility] Comment:Testing performed by : [address], [address] NRBC abs 0.00 0.00 - 0.01 K/cumm [facility] Comment:Testing performed by : [address] [address] ANC Prelim 2.31 1.50 - 6.50 K/cumm [facility] Comment: Interpretive Data The rapid ANC is a preliminary automated count and may vary from the final ANC (Neut Abs) reported in the WBC differential that follows. Current interpretive data was last revised 2025. Testing performed by: [address] [address] Blood 06/16/2025 8:36 AM CDT 06/16/2025 8:39 AM CDT [facility] [place] - 06/16/2025 8:51 AM CDT Monthly starting February 24 Monthly starting February 24 us Dania Yeager MD LAB BLOOD ORDERABLES Final Result [facility] [address] [facility] Department [place] [address] * Differential, auto (05/19/2025 7:33 AM CDT) Neutrophil abs 2.44 1.50 - 6.50 K/cumm Comment:Testing performed by : [address] [address] Imm gran abs 0.05 0.00 - 0.10 K/cumm [facility] Comment:Testing performed by : [address] [address] Lymphocyte abs 1.00 0.80 - 3.30 K/cumm [facility] Comment:Testing performed by : [address] [address] Monocyte abs 0.46 0.20 - 0.80 K/cumm [facility] Comment:Testing performed by : [address] [address] Eosinophil abs 0.13 0.00 - 0.50 K/cumm [facility] Comment:Testing performed by : [address] [address] Basophil abs 0.03 0.00 - 0.10 K/cumm [facility] Comment:Testing performed by : [address] [address] Neutrophil pct 59.4 % [facility] Comment: Interpretive Data Percent cell count reference ranges are not reported, since discordance with absolute values may lead to misinterpretation of CBC data. Current Interpretive Data was last revised on 2018. Testing performed by: [address] [address] Imm gran pct 1.2 % [facility] Comment: Interpretive Data Percent cell count reference ranges are not reported, since discordance with absolute values may lead to misinterpretation of CBC data. Current Interpretive Data was last revised on 2018. Testing performed by: [address] [address] Lymphocyte pct 24.3 % [facility] Comment: Interpretive Data Percent cell count reference ranges are not reported, since discordance with absolute values may lead to misinterpretation of CBC data. Current Interpretive Data was last revised on 2018. Testing performed by: [address] [address] Monocyte pct 11.2 % [facility] Comment: Interpretive Data Percent cell count reference ranges are not reported, since discordance with absolute values may lead to misinterpretation of CBC data. Current Interpretive Data was last revised on 2018. Testing performed by: [address] [address] Eosinophil pct 3.2 % [facility] Comment: Interpretive Data Percent cell count reference ranges are not reported, since discordance with absolute values may lead to misinterpretation of CBC data. Current Interpretive Data was last revised on 2018. Testing performed by: [address] [address] Basophil pct 0.7 % [facility] Comment: Interpretive Data Percent cell count reference ranges are not reported, since discordance with absolute values may lead to misinterpretation of CBC data. Current Interpretive Data was last revised on 2018. Testing performed by: [address] [address] Blood 05/19/2025 7:33 AM CDT 05/19/2025 7:40 AM CDT us Dania Yeager MD LAB BLOOD ORDERABLES Final Result [facility] [address] [facility] Department [place] [address] * (ABNORMAL) CBC with auto differential (05/19/2025 7:33 AM CDT) WBC 4.11 3.80 - 9.90 K/cumm Comment:Testing performed by : [address] [address] Hgb 13.1 11.9 - 15.5 g/dL [facility] Comment:Testing performed by : [address] [address] Hct 37.5 35.6 - 45.5 % [facility] Comment:Testing performed by : [address] [address] Plt 512(H) 150 - 400 K/cumm [facility] Comment:Testing performed by : [address] [address] MPV 8.1(L) 9.1 - 12.3 fL [facility] Comment:Testing performed by : [address] [address] RBC 3.72(L) 3.90 - 5.20 M/cumm [facility] Comment:Testing performed by : [address] [address] MCV 100.8(H) 81.3 - 96.4 fL [facility] Comment:Testing performed by : [address] [address] MCH 35.2(H) 27.1 - 33.3 pg [facility] Comment:Testing performed by : [address] [address] MCHC 34.9 32.3 - 35.7 g/dL [facility] Comment:Testing performed by : [address] [address] RDW CV 12.0 11.1 - 14.9 % [facility] Comment:Testing performed by : [address] [address] RDW SD 43.6 35.7 - 48.1 fL [facility] Comment:Testing performed by : [address] [address] NRBC abs 0.00 0.00 - 0.01 K/cumm [facility] Comment:Testing performed by : [address] [address] ANC Prelim 2.42 1.50 - 6.50 K/cumm [facility] Comment: Interpretive Data The rapid ANC is a preliminary automated count and may vary from the final ANC (Neut Abs) reported in the WBC differential that follows. Current interpretive data was last revised 2025. Testing performed by: [address] [address] Morphologic Screen Results confirmed by manual morphology review. [facility] Comment:Testing performed by : [address] [address] Blood 05/19/2025 7:33 AM CDT 05/19/2025 7:40 AM CDT Narrative [facility] - 05/19/2025 7:56 AM CDT Monthly starting February 24 Monthly starting February 24 Dania Yeager MD LAB BLOOD ORDERABLES Edited Result - Final [facility] [address] [facility] Department [place] [address] * CT Lung Cancer Screening (05/19/2025 7:01 AM CDT) Anatomical Region Laterality Modality Chest N/A Computed Tomogra phy 06/03/2025 11:4 8 AM CDT Narrative 06/03/2025 11:56 AM CDT EXAM DESCRIPTION: CT LUNG CANCER SCREENING REASON FOR STUDY: Screening CT of the chest in a former smoker with a 25 pack year smoking history. Additional history: None. TECHNIQUE: Low dose CT scan of the chest was performed without intravenous contrast using helical scanning technique. The exam extends from the lung apices through the lung bases. Automatic exposure control was used as a dose optimization technique. NOTE: This study was performed for the specific purposes of lung cancer screening and is not an alternative to diagnostic chest CT. RADIATION DOSE: CT dose index volume (CTDIvol) = 2.89 mGy COMPARISON: 10/11/2023 FINDINGS: Motion degraded examination. Findings made within these confines. SMOKING RELATED LUNG DISEASE: Minimal emphysematous changes. Biapical pleural-parenchymal scarring. LUNG NODULES: Punctate calcified anterior left lower lobe pulmonary nodule, likely sequela of previous granulomatous disease. No suspicious pulmonary nodules. CORONARY ARTERY CALCIFICATION: None. OTHER: No focal consolidation, pneumothorax, or pleural effusion. Heart size within normal limits. No thoracic aortic aneurysm. Unremarkable thyroid and esophagus. No pathologically enlarged lymphadenopathy. No definite acute abnormality within the visualized abdomen. No aggressive appearing osseous lesions. No acute osseous abnormality. IMPRESSION: No suspicious pulmonary nodules. Lung-RADS category 1: Negative. Recommendation: Low dose Screening CT of chest in 12 months. THIS IS AN ELECTRONICALLY VERIFIED FINAL REPORT 06/03/2025 11:56 AM - Electronically signed by Jhonny Wilcox M.D. NS: NS Report ID: [id number] Reading Location: [id number] Procedure Note Jhonny Wilcox MD - 06/03/2025 EXAM DESCRIPTION: CT LUNG CANCER SCREENING REASON FOR STUDY: Screening CT of the chest in a former smoker with a25 pack year smoking history. Additional history: None. TECHNIQUE: Low dose CT scan of the chest was performed without intravenous contrast using helical scanning technique. The exam extends from the lung apices through the lung bases. Automatic exposure control was used as adose optimization technique. NOTE: This study was performed for the specific purposes of lung cancer screening and is not an alternative to diagnostic chest CT. RADIATION DOSE: CT dose index volume (CTDIvol) = 2.89 mGy COMPARISON: 10/11/2023 FINDINGS: Motion degraded examination. Findings made within these confines. SMOKING RELATED LUNG DISEASE: Minimal emphysematous changes. Biapical pleural-parenchymal scarring. LUNG NODULES: Punctate calcified anterior left lower lobe pulmonarynodule, likely sequela of previous granulomatous disease. No suspicious pulmonary nodules. CORONARY ARTERY CALCIFICATION: None. OTHER: No focal consolidation, pneumothorax, or pleural effusion. Heart size within normal limits. No thoracic aortic aneurysm. Unremarkablethyroid and esophagus. No pathologically enlarged lymphadenopathy. No definiteacute abnormality within the visualized abdomen. No aggressive appearingosseous lesions. No acute osseous abnormality. IMPRESSION: No suspicious pulmonary nodules. Lung-RADS category 1: Negative. Recommendation: Low dose Screening CT of chest in 12 months. THIS IS AN ELECTRONICALLY VERIFIED FINAL REPORT 06/03/2025 11:56 AM - Electronically signed by Jhonny Wlicox M.D. NS: NS Report ID: [id number] Reading Location: [place] [address] Rubens Segundo MD IMG CT PROCEDURES Final Resu lt * Vitamin D 25 hydroxy (05/07/2025 7:41 AM CDT) Vitamin D 25-OH 41 30 - 100 ng/mL [facility] Comment: Vitamin D Status 25-OH Vitamin D: Deficiency: <20 ng/mL Insufficiency: 20 - 29 ng/mL Optimal: > or = 30 ng/mL For 25-OH Vitamin D testing on patients on D2-supplementation and patients for whom quantitation of D2 and D3 fractions is required, the QuestAssureD() 25-OH VIT D, (D2,D3), LC/MS/MS is recommended: order code 28824 (patients >2yrs). See Note 1 Note 1 For additional information, please refer to http://education.[employer]/faq/MJN176 (This link is being provided for informational/ educational purposes only.) Blood 05/07/2025 7:41 AM CDT 05/07/2025 7:42 AM CDT Narrative [facility] - 05/08/2025 3:06 AM CDT FASTING:YES FASTING: YES Yancy Erickson NP LAB BLOOD ORDERABLES Final Re sult Performing Organization Address [facility]/ZIP Co de Phone Number [facility] [address] [address] [facility] [place] [address] * TSH (05/07/2025 7:41 AM CDT) Pathologist [facility] TSH 0.98 0.40 - 4.50 mIU/L [facility] Blood 05/07/2025 7:41 AM CDT 05/07/2025 7:42 AM CDT Narrative [facility] - 05/08/2025 3:06 AM CDT FASTING:YES FASTING: YES Yancy Erickson AUTOMOBILE PARTS ASSEMBLER LAB BLOOD ORDERABLES Final [facility] Performing Organization Address [facility] Co de Phone Number QUEST [facility] [address] [place] [address] * Lipid panel (05/07/2025 7:41 AM CDT) Pathologist [facility] Cholesterol 145 <200 mg/dL re[facility]ouncesS garcia [place] HDL 66 > OR = 50 mg/dL [facility] Triglycerides 52 <150 mg/dL [facility] g[facility] LDL 66 mg/dL (calc) re[facility]S garcia [facility] Comment: Reference range: <100 Desirable range <100 mg/dL for primary prevention; <70 mg/dL for patients with CHD or diabetic patients with > or = 2 CHD risk factors. LDL-C is now calculated using the Gato-Jazmine calculation, which is a validated novel method providing better accuracy than the Friedewald equation in the estimation of LDL-C. Gato ROJAS et al. MATTHEW. 2013;310(19): 2886-2173 (http://education.[employer]/faq/QWP994) Chol/HDL ratio 2.2 <5.0 (calc) reBouncesAmeena Dewey Non-HDL, (LDL+VLDL) 79 <130 mg/dL (calc) FisionKrishS garcia [facility]wey Comment: For patients with diabetes plus 1 major ASCVD risk factor, treating to a non-HDL-C goal of <100 mg/dL (LDL-C of <70 mg/dL) is considered a therapeutic option. Blood 05/07/2025 7:41 AM CDT 05/07/2025 7:42 AM CDT Narrative [facility] - 05/08/2025 3:06 AM CDT FASTING:YES FASTING: YES Yancy Erickson NP LAB BLOOD ORDERABLES Final Re sult [facility] [address] [place] [address] * (ABNORMAL) Comprehensive metabolic panel (05/07/2025 7:41 AM CDT) Pathologist [facility] Glucose 115(H) 65 - 99 mg/dL re[facility] garcia [place] Comment: Fasting reference interval For someone without known diabetes, a glucose value between 100 and 125 mg/dL is consistent with prediabetes and should be confirmed with a follow-up test. BUN 15 7 - 25 mg/dL [facility] Creatinine 0.90 0.60 - 1.00 mg/dL [facility] eGFR 69 > OR = 60 mL/min/1.7 3m2 [facility] BUN/creat ratio SEE NOTE: 6 - 22 (calc) [facility] Comment: Not Reported: BUN and Creatinine are within reference range. Sodium 134(L) 135 - 146 mmol/L [facility] [place] Potassium, pl 4.4 3.5 - 5.3 mmol/L [facility] Chloride 98 98 - 110 mmol/L [facility] CO2 29 20 - 32 mmol/L [facility] Calcium 9.4 8.6 - 10.4 mg/dL [facility] Protein, sr 6.9 6.1 - 8.1 g/dL [facility] Albumin 4.5 3.6 - 5.1 g/dL [facility] GLOBULIN 2.4 1.9 - 3.7 g/dL (calc) [facility] Alb/glob ratio 1.9 1.0 - 2.5 (calc) [facility] Bilirubin, total 0.4 0.2 - 1.2 mg/dL [facility] Alk phos 43 37 - 153 U/L [facility] AST 17 10 - 35 U/L [facility]-S garcia [facility] ALT (SGPT) 11 6 - 29 U/L [facility] Blood 05/07/2025 7:41 AM CDT 05/07/2025 7:42 AM CDT Narrative [facility] - 05/08/2025 3:06 AM CDT FASTING:YES FASTING: YES Yancy Erickson AUTOM[employer]BILE [employer]S ASSEMBLER LAB BLOOD ORDERABLES Final Re sult [facility] [address] [place] [address] * XR Spine Cervical Complete 4 Or 5 Vw (05/05/2025 8:55 AM CDT) Anatomical Region Laterality Modality Spine N/A Radiographic Jaquelin ging Yancy Erickson AUTOM[employer]BILE PARTS ASSEMBLER IMG XR PROCEDURES Final Resul t * Differential, auto (04/21/2025 7:49 AM CDT) Neutrophil abs 2.18 1.50 - 6.50 K/cumm Comment:Testing performed by : [address] [address] Imm gran abs 0.02 0.00 - 0.10 K/cumm [place] Comment:Testing performed by : [address] [address] Lymphocyte abs 0.97 0.80 - 3.30 K/cumm [place] Comment:Testing performed by : [address] [address] Monocyte abs 0.45 0.20 - 0.80 K/cumm [place] Comment:Testing performed by : [address] [address] Eosinophil abs 0.12 0.00 - 0.50 K/cumm [place] Comment:Testing performed by : [address] [address] Basophil abs 0.04 0.00 - 0.10 K/cumm [place] Comment:Testing performed by : [address] [address] Neutrophil pct 57.6 % [facility] Comment: Interpretive Data Percent cell count reference ranges are not reported, since discordance with absolute values may lead to misinterpretation of CBC data. Current Interpretive Data was last revised on 2018. Testing performed by: [address] [address] Imm gran pct 0.5 % [facility] Comment: Interpretive Data Percent cell count reference ranges are not reported, since discordance with absolute values may lead to misinterpretation of CBC data. Current Interpretive Data was last revised on 2018. Testing performed by: [address] [address] Lymphocyte pct 25.7 % [facility] Comment: Interpretive Data Percent cell count reference ranges are not reported, since discordance with absolute values may lead to misinterpretation of CBC data. Current Interpretive Data was last revised on 2018. Testing performed by: [address] [address] Monocyte pct 11.9 % [facility] Comment: Interpretive Data Percent cell count reference ranges are not reported, since discordance with absolute values may lead to misinterpretation of CBC data. Current Interpretive Data was last revised on 2018. Testing performed by: [address] [address] Eosinophil pct 3.2 % [facility] Comment: Interpretive Data Percent cell count reference ranges are not reported, since discordance with absolute values may lead to misinterpretation of CBC data. Current Interpretive Data was last revised on 2018. Testing performed by: [address] [address] Basophil pct 1.1 % [facility] Comment: Interpretive Data Percent cell count reference ranges are not reported, since discordance with absolute values may lead to misinterpretation of CBC data. Current Interpretive Data was last revised on 2018. Testing performed by: [address] [address] Blood 04/21/2025 7:49 AM CDT 04/21/2025 7:50 AM CDT us Dania N. Shobha MD LAB BLOOD ORDERABLES Final Result [facility] [address] [facility] Department [place] [address] * (ABNORMAL) CBC with auto differential (04/21/2025 7:49 AM CDT) WBC 3.78(L) 3.80 - 9.90 K/cumm Comment:Testing performed by : [address] [address] Hgb 12.8 11.9 - 15.5 g/dL [place] Comment:Testing performed by : [address] [address] Hct 38.0 35.6 - 45.5 % [place] Comment:Testing performed by : [address] [address] Plt 486(H) 150 - 400 K/cumm [place] Comment:Testing performed by : [address] [address] MPV 8.3(L) 9.1 - 12.3 fL [place] Comment:Testing performed by : [address] [address] RBC 3.60(L) 3.90 - 5.20 M/cumm [place] Comment:Testing performed by : [address] [address] MCV 105.6(H) 81.3 - 96.4 fL [place] Comment:Testing performed by : [address] [address] MCH 35.6(H) 27.1 - 33.3 pg [place] Comment:Testing performed by : [address] [address] MCHC 33.7 32.3 - 35.7 g/dL [place] Comment:Testing performed by : [address], [address] RDW CV 11.9 11.1 - 14.9 % [place] Comment:Testing performed by : [address] [address] RDW SD 45.9 35.7 - 48.1 fL [place] Comment:Testing performed by : [address] [address] NRBC abs 0.00 0.00 - 0.01 K/cumm [place] Comment:Testing performed by : [address] [address] ANC Prelim 2.18 1.50 - 6.50 K/cumm [place] Comment: Interpretive Data The rapid ANC is a preliminary automated count and may vary from the final ANC (Neut Abs) reported in the WBC differential that follows. Current interpretive data was last revised 2025. Testing performed by: [address] [address] Blood 04/21/2025 7:49 AM CDT 04/21/2025 7:50 AM CDT Narrative [place] - 04/21/2025 7:53 AM CDT Monthly starting February 24 Monthly starting February 24 Dania Yeager MD LAB BLOOD ORDERABLES Final Result [place] [address] [facility] Department [place] [address] * (ABNORMAL) Dexa Axial Skeleton Bone Density 1 or 2 Site (05/30/2024 12:16 PM CDT) SCRIBED DXA T-SCORE -1.0 SCRIBED DXA Z-SCORE 1.1 SCRIBED DXA BMD 0.940 Anatomical Region Laterality Modality Body N/A Radiographic Jaquelin ging us Yancy Erickson NP IMG DXA PROCEDURES Final Resu lt * DIAGNOSTIC MAMMOGRAM BILATERAL W LUIGI (05/28/2024) Anatomical Region Laterality Modality Breast Bilateral Mammography 05/28/2024 us Yancy M. Faires AUTOMOBILE PARTS ASSEMBLER IMG MAMMO PROCEDURES Edited R esult - Final * Stool DNA - Cologuard (01/31/2024 7:56 AM CDT) Stool us Historical Provider LAB BODY FLUIDS AND STOOL S ORDERABLES Final Result from Last 3 Months or Most Recently Relevant to Health Maintenance Insurance MEDICARE ADVANTAGE MEDICARE ADVANTAGE Care Teams Production Machine Operator Relationship Specialty Start Date End Date Yancy Erickson NP [address] [address] PCP - General Internal Medicine 01/31/23 Rubens Segundo MD [facility] [address] [address] Consulting Physician Pulmonary Disease 01/11/24
--- OUTSIDE RECORDS SUMMARY | 2025-07-07 08:22 | XMS_ITS | Encounter Summary ---
Author Organization [facility] Address [address] [place] [address] Care Team Providers Care Ict Business Analyst Name Role Phone Yancy Erickson NP Primary Care Provider [phone] Rubens Segundo MD Unavailable [phone] Reason for Referral * Consultation (Routine) - Authorized Specialty Diagnoses / Procedures Referred By Contflavio t Referred To Contact Physical Therapy Diagnoses Neck pain Yancy Erickson, AUTOMOTIVE FLEET SUPERVISOR [address] [facility] [address] [place] [address] Phone: tel: fax: [facility] [place] [address] [place] [address] Phone: tel: fax: Referral ID Status Reason Start Date Expiration Date Visits Requested Visits Authorized [id number] Authorized Specialty Services Required 05/06/2025 06/05/2026 24 24 Question Answer PTRFR PT Evaluate and Treat Therapy options discussed with patient? Yes Location provided for therapy services is: Patient requested/Patient preferred Please select the performing region: External Order [[id number]] To loc/pos [facility] [place] [[id number]] # of visits: 24 Comments PT Eval and Treat 2-3 times/week for 4-6 weeks Dx:neck pain Narrowing if disc c-3 c-4 c5 6-c7 Encounter Details Date Type Department Care Team (Latest Contact Info) Description 05/06/2025 Results Follow-Up [facility] [address] [place] [id number] Yancy Erickson NP [address] [place] [address] XR Spine Cervical Complete 4 Or 5 Vw, Comprehensive metabolic panel, Vitamin D 25 hydroxy, Additional followed-up results: 2 Social History Tobacco Use Types Packs/Day Years Used Date Smoking Tobacco: Former Cigarettes 1 40 0 10/30/1979 - 10/30/2019 Smokeless Tobacco: Never Alcohol Use Standard Drinks/Week Comments Yes 2 [...] on file Legal Sex Female 12:19 AM AEROTRIANGULATION SPECIALIST Gender Identity Female 07/07/2023 9:05 AM CDT Sexual Orientation Straight 07/07/2023 9: 05 AM CDT 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 Not on file Not on file Retired Not on file Not on file Not on file documented as of this encounter Plan of Treatment Scheduled Referrals Name Type Priority Associated Diagnoses Order Schedule Ambulatory referral order to Physical Therapy - Outpatient Referral Routine Neck pain Expected: 05/20/2025 (Approximate), Expires: 05/06/2026 documented as of this encounter Visit Diagnoses Diagnosis Neck pain- Primary Cervicalgia documented in this encounter Care Teams Ict Business Analyst Relationship Specialty Start Date End Date Yancy Erickson NP [address] [facility] [address] [place] [address] PCP - General Internal Medicine 01/31/23 Rubens Segundo MD [address] [facility] [place] [address] [place] [address] Consulting Physician Pulmonary Disease 01/11/24 documented as of this encounter
== END 2025-07-07 08:06 | disposition home or self-care (01) ==
LOC: ANHFOHIMG 08:06
PROVIDERS: PCP Nurse Practitioner Family; Visit Provider Nurse Practitioner Family
DX: Z12.31 Encounter for screening mammogram for malignant neoplasm of breast (principal)
CPT/HCPCS: 77063; 77067

== ENCOUNTER 2025-09-29 10:06 | Outpatient (CLI) | payer MEDICARE, SELFPAY ==
--- NOTE | ~2025-09-29 | DEXA_ITS ---
Bone Density Report Name: JOHN DIAZ I Age: 70 Sex: Female Ethnicity: White Date of : 1955 Indication: osteopenia; height loss; hysterectomy; rheumatoid arthritis; Referring Provider: ERAN, BACILIO Study: Bone densitometry was performed. Exam Date: September 29, 2025 Accession number: [id number] Bone Density: Region BMD T-score Z-score Classification AP Spine(L1-L4) 0.800 -2.2 -0.1 Osteopenia Femoral Neck (Left) 0.697 -1.4 0.5 Osteopenia Total Hip (Left) 0.847 -0.8 0.8 Normal Femoral Neck (Right) 0.618 -2.1 -0.3 Osteopenia Total Hip (Right) 0.835 -0.9 0.7 Normal Total Hip Mean 0.841 -0.9 0.8 Normal World Health Organization criteria for BMD impression classify patients as: Normal (T-score at or above -1.0), Osteopenia (T-score between -1.0 and -2.5), or Osteoporosis (T-score at or below -2.5). 10-year Fracture Risk(1): Major Osteoporotic Fracture 19% Hip Fracture 5.0% Reported Risk Factors: [place] (), Neck BMD=0.618, BMI=29.5, rheumatoid arthritis, alcohol use (1) FRAX(R) Version 3.08. Fracture probability calculated for an untreated patient. Fracture probability may be lower if the patient has received treatment. Previous Exams: Region Exam Age BMD T-score BMD Change BMD Change Date g/cm2 vs Baseline vs Previous AP Spine (L1-L4) 09/29/2025 70 0.800 -2.2 -0.140 (-14.9% -0.140 (-14.9% 05/28/2024 69 0.940 -1.0 Total Hip(Left) 09/29/2025 70 0.847 -0.8 0.041 (5.1%)# 0.041 (5.1%)# 05/28/2024 69 0.806 -1.1 Total Hip(Right) 09/29/2025 70 0.835 -0.9 0.010 (1.2%)# 0.010 (1.2%)# 05/28/2024 69 0.825 -1.0 *Denotes significance at 95% confidence level, LSC for AP Spine = 0.022 g/cm2, LSC for Total Hip = 0.027 g/cm2 # Denotes dissimilar scan types or analysis methods Clinical Information Provided by Patient: Has rheumatoid arthritis Has 3 or more alcoholic drinks per day Has used the following medications: Vitamin D Has the following medical conditions: Hysterectomy Patient maximum height was 66 Menopause Age: 40 No regular weight bearing exercise Drinks caffeinated beverages Onset of menses at age 10 Number of children 3 Impression: The patient has low bone mass, based on the Total Spine T-score. The patient has an estimated ten-year risk of hip fracture of 5% and an estimated ten-year risk of major fracture of 19%, based on the WHO FRAX algorithm. The patient has risk factors, including: excessive alcohol use. No significant bone loss was observed. Discussion: BONE DENSITY IS LOW AT ONE OR MORE SKELETAL SITES. THE PATIENT'S BMD AND CLINICAL RISK FACTORS CONTRIBUTE TO THIS PATIENT'S INCREASED RISK OF FRACTURE. This patient's lowest T-score is low at one or more skeletal sites. It meets the World Health Organization's (WHO) criteria for ?low bone mass? (T-score between -1.0 and -2.5). The patient's 10-year risk of hip fracture as calculated by FRAX exceeds the threshold where pharmacological therapy is recommended by the National Osteoporosis Foundation (NOF). However, all treatment decisions require clinical judgment and consideration of individual patient factors, including patient preferences, comorbidities, previous drug use, risk factors not captured in the FRAX model (e.g., frailty, falls, vitamin D deficiency, increased bone turnover, interval significant decline in bone density) and possible under or overestimation of fracture risk by FRAX. The patient should follow a healthful lifestyle (good nutrition with adequate calcium and vitamin D, and appropriate weight-bearing exercise). Follow-Up: Consider a repeat BMD and Vertebral Fracture Assessment (VFA) exam in 2 years or sooner if medically necessary, to reassess this patient's status. Reported by: JOEY on 09/29/2025 10:54:00 AM. Reviewed, dictated and finalized at location A.
--- OUTSIDE RECORDS SUMMARY | 2025-09-29 11:19 | XMS_ITS ---
Author Organization [facility] Address [address] [place] [address] Care Team Providers Care Landscape Painter Name Role Phone Yancy Erickson NP Primary Care Provider [phone] Rubens Segundo MD Unavailable [phone] Active Problems Problem Noted Date Diagnosed Date [...] 05/03/2023 Assessment & Plan (11/28/2023 8:11 AM PRESS TECHNICIAN): This is a significant, separately identifiable problem [...] 05/27/2009 Assessment & Plan (11/28/2023 8:11 AM PRESS TECHNICIAN): This is a significant, separately identifiable problem [...]
--- OUTSIDE RECORDS SUMMARY | 2025-09-29 11:19 | XMS_ITS | Clinical Summary ---
Author Organization [facility] Address [facility] [place] [address] Care Team Providers Care Director Online Marketing Name Role Phone Yancy Erickson NP Primary Care Provider [phone] Rubens Segundo MD Unavailable [phone] Allergies Active Allergy Reactions Criticality Noted Date [...] Essential thrombocythemia (HCC) Take by mouth Active jkzt-irfs-ogk-yuc- nhw-ehfu-iek [phone] mg tabletIndications: Essential thrombocythemia (HCC) Take by mouth Active spironolactone-hyd roCHLOROthiazide (ALDACTAZIDE) 25-25 mg per tabletIndications: Hypertension, essential TAKE 1 TABLET BY MOUTH DAILY 90 tablet 1 025 Active ergocalciferol (VITAMIN D) 50,000 unit capsuleIndications :Vitamin D deficiency TAKE 1 CAPSULE BY MOUTH 1 TIME A WEEK 12 capsule 4 025 Active gabapentin (NEURONTIN) 300 mg capsuleIndications :Neuropathy TAKE 1 CAPSULE(300 MG) BY MOUTH EVERY NIGHT 90 capsule 1 025 Active amLODIPine (NORVASC) 10 mg tablet TAKE 1 TABLET(10 MG) BY MOUTH DAILY 100 tablet [address] (CYMBALTA) 30 mg capsuleIndications :Anaclitic depression,Chronic pain of left knee TAKE ONE CAPSULE BY MOUTH THREE TIMES DAILY 270 capsule 1 025 Active losartan (COZAAR) 100 mg tabletIndications: Hypertension, essential TAKE 1 TABLET(100 MG) BY MOUTH DAILY 100 tablet 1 025 Active hydroxyurea (HYDREA) 500 mg capsuleIndications :Essential thrombocythemia (HCC) Take 1 tablet (500mg) on Sun,,Mon ,Mon and 2 tablets (1000mg) on Mon, , Saturdays 100 capsule 1 025 Active levothyroxine (SYNTHROID) 50 mcg tabletIndications: Acquired hypothyroidism TAKE 1 TABLET(50 MCG) BY MOUTH DAILY 90 tablet 1 025 Active ALPRAZolam (XANAX) 0.5 mg tabletIndications: Anxiety TAKE 1 TABLET(0.5 MG) BY MOUTH TWICE DAILY NEEDED FOR ANXIETY 45 tablet 025 Active fenofibrate (TRIGLIDE) 160 mg tablet TAKE 1 TABLET(160 MG) BY MOUTH DAILY 100 tablet 1 025 Active tiZANidine (ZANAFLEX) 4 mg tabletIndications: Night muscle spasms TAKE 1 TABLET(4 MG) BY MOUTH EVERY 8 HOURS NEEDED FOR MUSCLE SPASMS 90 tablet 1 025 Active fenofibrate (TRIGLIDE) 160 mg tablet TAKE 1 TABLET(160 MG) BY MOUTH DAILY 100 tablet 1 025 2024 Discontinued levothyroxine (SYNTHROID) 50 mcg tabletIndications: Acquired hypothyroidism TAKE 1 TABLET(50 MCG) BY MOUTH DAILY 90 tablet 1 025 2024 Discontinued hydroxyurea (HYDREA) 500 mg capsuleIndications :Essential thrombocythemia (HCC) Take 1 tablet (500mg) on Sun,,Mon ,Mon,Sat and 2 tablets (1000mg) on Mon, 100 capsule 1 025 2024 Discontinued(R eorder) ALPRAZolam (XANAX) 0.5 mg tabletIndications: Anxiety TAKE 1 TABLET(0.5 MG) BY MOUTH TWICE DAILY NEEDED FOR ANXIETY 45 tablet 2 025 2024 Discontinued tiZANidine (ZANAFLEX) 4 mg tabletIndications: Night muscle spasms TAKE 1 TABLET(4 MG) BY MOUTH EVERY 8 HOURS NEEDED FOR MUSCLE SPASMS 90 tablet 1 025 2024 Discontinued Active Problems Problem Noted Date Diagnosed Date [...] 05/03/2023 Assessment & Plan (11/28/2023 8:11 AM PHARMACY INTAKE COORDINATOR): This is a significant, separately identifiable problem [...] 05/27/2009 Assessment & Plan (11/28/2023 8:11 AM PHARMACY INTAKE COORDINATOR): This is a significant, separately identifiable problem that was evaluated and managed on the same day as the wellness exam 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 Resolved Problems Problem Noted Date Diagnosed Date Resolved Date BMI 26.0-26.9,adult 01/31/2023 05/03/20 23 Encounters Date Type Department Care Team Description 09/01/2025 9:20 AM PHARMACY INTAKE COORDINATOR Office Visit [facility] [address] [place] [address] [address] [place] [address] Madan Rucker MD Essential thrombocythemia (HCC) (Primary Dx) 09/01/2025 9:00 AM PHARMACY INTAKE COORDINATOR Lab [facility] [place] at [address] [address] Essential thrombocythemia (HCC) from Last 3 Months [...] 06/27/2019 Surgical History Surgery Date Site/Laterality Comments MO TOTAL ABDOMINAL HYSTERECT W/WO RMVL TUBE OVARY Hysterectomy - (Added by TW Conv) MO LIG/TRNSXJ FLP TUBE ABDL/ VAG APPR UNI/BI Tubal Ligation - (Added by TW Conv) PLASTIC SURGERY HYSTERECTOMY BACK SURGERY Medical [...] history of depression - sister (Added by TW Conv) Bipolar disorder Other 4 Family hist ory of bipolar disorder - daughter (Added by TW Conv) Stomach cancer Paternal Grandmother Relation Name [...] on file Legal Sex Female 12:19 AM PHARMACY INTAKE COORDINATOR Gender Identity Female 07/07/2023 9:05 AM CDT Sexual Orientation Straight 07/07/2023 9: 05 AM CDT 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 file Not on file Not on file Retired Not on file Not on file Not on file Last Filed Vital Signs Vital Sign Reading Time Taken Comments Blood Pressure 145/72 09/01/2025 9:03 AM PHARMACY INTAKE COORDINATOR Pulse 84 09/01/2025 9:03 AM PHARMACY INTAKE COORDINATOR Temperature 36.8 C (98.3 F) 09/01/2025 9:03 AM PHARMACY INTAKE COORDINATOR Respiratory Rate 18 09/01/2025 9:03 AM PHARMACY INTAKE COORDINATOR Oxygen Saturation 99% 09/01/2025 9:03 AM PHARMACY INTAKE COORDINATOR Inhaled Oxygen Concentration - - Weight 79.2 kg (174 lb 9.7 oz) 09/01/2025 9:03 A M PHARMACY INTAKE COORDINATOR Height 165.1 cm (5' 5) 05/19/2025 7:02 AM CDT Body Mass Index 29.06 05/19/2025 7:02 AM CDT Plan of Treatment Health Maintenance Due Date Last Done Comments Hepatitis C Screening 1955 Hepatitis B Screening 1973 Covid-19 Vaccine (2024-11 6 season) 2025 08/04/2024, 07/28/2021, 07/28/2021, Additional history exists Influenza Vaccine (#1) 2025 , 08/04/2023, 11/30/2021, Additional history exists Depression Screening 04/30/2026 04/30/2025, 12/24/2024, 10/28/2024, Additional history exists Fall Risk Assessment 04/30/2026 04/30/2025, 12/24/2024, 10/28/2024, Additional history exists Well Visit 65+ 04/30/2026 04/30/2025, 11/01, 08/29/2023 Lung Cancer Screening 05/20/2026 05/19/2025 , 05/04/2023, 05/04/2023, Additional history exists Osteoporosis Screening-Bone Density Scan 05/30/2026 05/30/2024 Breast Cancer Screening-Mammogram 07/08/2026 07/08/2025, 05/28/2024, 04/11/2023 Colon Cancer Screening-DNA Stool 01/30/2027 01/31/2024, 01/22/2024, 12/28/2020 DTaP/Tdap/Td Vaccine (2 - Td or Tdap) 10/09/2029 10/09/2019 Zoster Vaccine Completed 08/21/2019, 05/31, 06/18/2019, Additional history exists Pneumococcal vaccine 65+ Completed 11/11/2020, 08/01 Colon Cancer Screening-Colonoscopy Discontinued 01/31/2024 Colon Cancer Screening-FIT Discontinued 01/30, 01/22/2024, 12/28/2020 Procedures Procedure Name Priority Date/Time Associated Diagnosis Comments EGFR Routine 09/01/2025 8:56 AM PHARMACY INTAKE COORDINATOR Essential thrombocythemia (HCC) VITAMIN B12 Routine 09/01/2025 8:56 AM PHARMACY INTAKE COORDINATOR Essential thrombocythemia (HCC) FOLATE Routine 09/01/2025 8:56 AM PHARMACY INTAKE COORDINATOR Essential thrombocythemia (HCC) DIFFERENTIAL AUTO Routine 09/01/2025 8:5 6 AM PHARMACY INTAKE COORDINATOR Essential thrombocythemia (HCC) CBC WITH AUTO DIFFERENTIAL Routine 09/01/2025 8:56 AM PHARMACY INTAKE COORDINATOR Essential thrombocythemia (HCC) COMPREHENSIVE METABOLIC PANEL Routine 09/01/2025 8:56 AM PHARMACY INTAKE COORDINATOR Essential thrombocythemia (HCC) LACTATE DEHYDROGENASE Routine 09/01/2025 8:56 AM PHARMACY INTAKE COORDINATOR Essential thrombocythemia (HCC) SCREENING MAMMOGRAM BILATERAL W MIKE Schedule Routine, Read Routine (OP Routine) 07/08/2025 11:16 AM CDT Breast cancer screening by mammogram CT LUNG CANCER SCREENING Schedule Routine, Read Routine (OP Routine) 05/19/2025 7:01 AM CDT Nicotine dependence, cigarettes, in remission Encounter for screening for lung cancer DEXA AXIAL SKELETON BONE DENSITY 1 OR MORE SITES Schedule Routine, Read Routine (OP Routine) 05/30/2024 12:16 PM CDT Post-menopause STOOL DNA COLOGUARD Routine 01/31/2024 7:56 AM CDT from Last 3 Months or Most Recently Relevant to Health Maintenance Results * eGFR (09/01/2025 8:56 AM PHARMACY INTAKE COORDINATOR) eGFR 79 >=60 mL/min/1. 73 m2 Comment: Interpretive Data Reference Interval Normal >/= 90 mL/min/1.73m2 Mildly decreased* 60 - 89 mL/min/1.73m2 Mildly to moderately decreased 45 - 59 mL/min/1.73m2 Moderately to severely decreased 30 - 44 mL/min/1.73m2 Severely decreased 15 - 29 mL/min/1.73m2 Kidney Failure < 15 mL/min/1.73m2 *Relative to young adult level Estimated glomerular filtration rate is determined by the 2020 CKD-EPI equation recommended by the National Kidney Foundation (A Unifying Approach to GFR Estimation: Recommendations of the NKF-ASK Task Force on Reassessing the Inclusion of Race in Diagnosing Kidney Disease, JASN 2020). The CKD-EPI equation should not be used for patients with unstable renal function and has not been validated in children and those over 70. Current interpretive data was last reviewed 2021. Testing performed by: [facility], [address] [place] [address], [place]., [address] Blood 09/01/2025 8:56 AM PHARMACY INTAKE COORDINATOR 09/01/2025 9:01 AM PHARMACY INTAKE COORDINATOR us Dania Yeager MD LAB BLOOD ORDERABLES Final Result [facility] [address] [facility] [place] [address] * Differential, auto (09/01/2025 8:56 AM PHARMACY INTAKE COORDINATOR) Neutrophil abs 2.58 1.50 - 6.50 K/cumm Comment:Testing performed by : [address] [address] Imm gran abs 0.02 0.00 - 0.10 K/cumm [place] Comment:Testing performed by : [address] [address] Lymphocyte abs 0.87 0.80 - 3.30 K/cumm [place] Comment:Testing performed by : [address] [address] Monocyte abs 0.56 0.20 - 0.80 K/cumm [place] Comment:Testing performed by : [address] [address] Eosinophil abs 0.11 0.00 - 0.50 K/cumm [place] Comment:Testing performed by : [address] [address] Basophil abs 0.03 0.00 - 0.10 K/cumm [place] Comment:Testing performed by : [address] [address] Neutrophil pct 61.9 % [facility] Comment: Interpretive Data Percent cell count reference ranges are not reported, since discordance with absolute values may lead to misinterpretation of CBC data. Current Interpretive Data was last revised on 2018. Testing performed by: [address] [address] Imm gran pct 0.5 % [place] Comment: Interpretive Data Percent cell count reference ranges are not reported, since discordance with absolute values may lead to misinterpretation of CBC data. Current Interpretive Data was last revised on 2018. Testing performed by: [address] [address] Lymphocyte pct 20.9 % [facility] Comment: Interpretive Data Percent cell count reference ranges are not reported, since discordance with absolute values may lead to misinterpretation of CBC data. Current Interpretive Data was last revised on 2018. Testing performed by: [address] [address] Monocyte pct 13.4 % [facility] Comment: Interpretive Data Percent cell count reference ranges are not reported, since discordance with absolute values may lead to misinterpretation of CBC data. Current Interpretive Data was last revised on 2018. Testing performed by: [address] [address] Eosinophil pct 2.6 % [facility] Comment: Interpretive Data Percent cell count reference ranges are not reported, since discordance with absolute values may lead to misinterpretation of CBC data. Current Interpretive Data was last revised on 2018. Testing performed by: [address] [address] Basophil pct 0.7 % [place] Comment: Interpretive Data Percent cell count reference ranges are not reported, since discordance with absolute values may lead to misinterpretation of CBC data. Current Interpretive Data was last revised on 2018. Testing performed by: [address] [address] Blood 09/01/2025 8:56 AM PHARMACY INTAKE COORDINATOR 09/01/2025 9:01 AM PHARMACY INTAKE COORDINATOR us Dania eYager MD LAB BLOOD ORDERABLES Final Result [facility] [address] [facility] Department [place] [address] * (ABNORMAL) CBC with auto differential (09/01/2025 8:56 AM PHARMACY INTAKE COORDINATOR) WBC 4.17 3.80 - 9.90 K/cumm Comment:Testing performed by : [address] [address] Hgb 13.5 11.9 - 15.5 g/dL [facility] SWANSON Comment:Testing performed by : [address] [address] Hct 38.6 35.6 - 45.5 % [place] Comment:Testing performed by : [address] [address] Plt 457(H) 150 - 400 K/cumm [place] Comment:Testing performed by : [address] [address] MPV 8.4(L) 9.1 - 12.3 fL [place] Comment:Testing performed by : [address] [address] RBC 3.71(L) 3.90 - 5.20 M/cumm [place] Comment:Testing performed by : [address] [address] MCV 104.0(H) 81.3 - 96.4 fL [place] Comment:Testing performed by : [address] [address] MCH 36.4(H) 27.1 - 33.3 pg [facility] Comment:Testing performed by : [address] [address] MCHC 35.0 32.3 - 35.7 g/dL [place] Comment:Testing performed by : [address] [address] RDW CV 13.2 11.1 - 14.9 % [place] Comment:Testing performed by : [address] [address] RDW SD 50.2(H) 35.7 - 48.1 fL [place] Comment:Testing performed by : [address] [address] NRBC abs 0.00 0.00 - 0.01 K/cumm [place] Comment:Testing performed by : [address] [address] ANC Prelim 2.58 1.50 - 6.50 K/cumm [place] Comment: Interpretive Data The rapid ANC is a preliminary automated count and may vary from the final ANC (Neut Abs) reported in the WBC differential that follows. Current interpretive data was last revised 2025. Testing performed by: [address], [address] Blood 09/01/2025 8:56 AM PHARMACY INTAKE COORDINATOR 09/01/2025 9:01 AM PHARMACY INTAKE COORDINATOR Narrative [facility] 09/01/2025 9:09 AM PHARMACY INTAKE COORDINATOR Monthly starting February 24 Monthly starting February 24 Dania Yeager MD LAB BLOOD ORDERABLES Final Result Performing Organization Address City/[facility]/ZIP Co de Phone Number [address] [place] [address] * (ABNORMAL) Lactate dehydrogenase (LD) (09/01/2025 8:56 AM PHARMACY INTAKE COORDINATOR) Lactate dehydrogenase (LDH) 91(L) 100 - 250 Units/L Comment:Testing performed by : [address] [address] Blood 09/01/2025 8:56 AM PHARMACY INTAKE COORDINATOR 09/01/2025 9:01 AM PHARMACY INTAKE COORDINATOR Dania Yeager MD LAB BLOOD ORDERABLES Final Result Performing Organization Address [facility] Co de Phone Number [address] [address] * Folate (09/01/2025 8:56 AM PHARMACY INTAKE COORDINATOR) Folic acid 9.6 >=5.0 ng/mL Comment:Testing performed by : [address] [address] Blood 09/01/2025 8:56 AM PHARMACY INTAKE COORDINATOR 09/01/2025 11:53 AM PHARMACY INTAKE COORDINATOR Madan Rucker MD LAB BLOOD ORDERABLES Final Resul t Performing Organization Address City/[facility] Co de Phone Number [address] [address] * Vitamin B12 (09/01/2025 8:56 AM PHARMACY INTAKE COORDINATOR) Vitamin B12 348 230 - 1,250 pg/mL Comment:Testing performed by : [address] [address] Blood 09/01/2025 8:56 AM PHARMACY INTAKE COORDINATOR 09/01/2025 11:53 AM PHARMACY INTAKE COORDINATOR us Madan Rucker MD LAB BLOOD ORDERABLES Final Resul t [facility] [address] [facility] [place] [address] * (ABNORMAL) Comprehensive metabolic panel (09/01/2025 8:56 AM PHARMACY INTAKE COORDINATOR) Sodium 132(L) 135 - 145 mmol/L Comment:Testing performed by : [address] [address] Potassium, pl 3.8 3.3 - 4.9 mmol/L [place] Comment:Testing performed by : [address] [address] Chloride 96(L) 97 - 110 mmol/L [place] Comment:Testing performed by : [address] [address] CO2 25 22 - 32 mmol/L [place] Comment:Testing performed by : [address] [address] Anion gap 11 2 - 15 mmol/L [place] Comment:Testing performed by : [address] [address] BUN 12 6 - 25 mg/dL [place] Comment:Testing performed by : [address] [address] Creatinine 0.80 0.60 - 1.10 mg/dL [place] Comment:Testing performed by : [address] [address] Glucose 111 70 - 199 mg/dL [place] Comment: Interpretive Data Fasting glucose >/= 126 mg/dl is diagnostic for diabetes. Fasting is defined as no caloric intake for at least 8 hours. Fasting glucose between 100 mg/dl to 125 mg/dl is diagnostic of prediabetes. In a patient with classic symptoms of hyperglycemia or hyperglycemic crisis, a random glucose >/= 200 mg/dl is diagnostic for diabetes. In the absence of unequivocal hyperglycemia, results should be confirmed by repeat testing. The classification and Diagnosis of Diabetes Diabetes Care 202; 46: S19-S40. Current interpretive data was last revised 2022. Testing performed by: [address] [address] Calcium 9.4 8.5 - 10.3 mg/dL [place] Comment:Testing performed by : [address] [address] Bilirubin, total 0.3 0.1 - 1.2 mg/dL [facility] Comment:Testing performed by : [address] [address] Protein, pl 7.2 6.5 - 8.5 g/dL [place] Comment:Testing performed by : [address] [address] Albumin 4.4 3.5 - 5.0 g/dL [place] Comment:Testing performed by : [address] [address] Alk phos 48 40 - 130 Units/L [place] Comment:Testing performed by : [address] [address] ALT 14 7 - 45 Units/L [place] Comment:Testing performed by : [address] [address] AST 21 10 - 45 Units/L [place] Comment:Testing performed by : [address] [address] Blood 09/01/2025 8:56 AM PHARMACY INTAKE COORDINATOR 09/01/2025 9:01 AM PHARMACY INTAKE COORDINATOR Dania Yeager MD LAB BLOOD ORDERABLES Final Result [facility] [address] [facility] [place] [address] * Screening Mammogram Bilateral W Mike (07/08/2025 11:16 AM CDT) Anatomical Region Laterality Modality Breast Bilateral Mammography Yancy ShahidDontrell Guyirving AIDS NURSE IMG MAMMO PROCEDURES Final Re sult * CT Lung Cancer Screening (05/19/2025 7:01 [...] Jhonny Wilcox M.D. NS: NS Report ID: [id number] Reading Location: [id number] Procedure Note Jhonny Wilcox MD - 06/03/2025 [...] Jhonny Wilcox M.D. NS: NS Report ID: [id number] Reading Location: [place] [address] Rubens Sgeundo MD IMG CT PROCEDURES Final Resu lt * (ABNORMAL) Dexa Axial Skeleton Bone Density 1 or 2 Site (05/30/2024 12:16 PM CDT) SCRIBED DXA T-SCORE -1.0 SCRIBED DXA Z-SCORE 1.1 SCRIBED DXA BMD 0.940 Anatomical Region Laterality Modality Body N/A Radiographic Jaquelin ging Yancy Erickson NP IMG DXA PROCEDURES Final Resu lt * Stool DNA - Cologuard (01/31/2024 7:56 AM CDT) Stool us Historical Provider LAB BODY FLUIDS AND STOOL S ORDERABLES Final Result from Last 3 Months or Most Recently Relevant to Health Maintenance Insurance MEDICARE ADVANTAGE Member Subscriber Plan / Payer (Ef fective 2023-Present) Name:Jamie Akersgarcia Campoverde Relation to Subscriber:Self Name:Nadia Akers Gilles Payer ID:[id number] (NAIC) Type:[facility] MEDICARE Address: [place] [phone] MEDICARE ADVANTAGE Care Teams Director Online Marketing Relationship Specialty Start Date End Date Yancy Erickson, PAUL [address] [facility] [address] [place] [address] PCP - General Internal Medicine 01/31/23 Rubens Segundo MD [address] [facility] [address] [place] [address] [place] [address] Consulting Physician Pulmonary Disease 01/11/24
== END 2025-09-29 10:07 | disposition home or self-care (01) ==
LOC: ANHFOHIMG 10:08
PROVIDERS: PCP Nurse Practitioner Family; Visit Provider Nurse Practitioner Family
DX: M85.89 Other specified disorders of bone density and structure, multiple sites (principal); Z78.0 Asymptomatic menopausal state
CPT/HCPCS: 77080